=== PATIENT | female | born 1990 | race American Indian/Alaskan Native ===

== ENCOUNTER 2018-04-28 11:36 | Emergency (ER) | payer SELFPAY ==
--- NOTE | 2018-04-28 11:46 | Emergency Department Report ---
Blank Doc - Documentation Documentation: This is a 28-year-old female that presents with boil to right sided buttock ar ea. Denies any pus or drainage. This initial assessment diagnostic orders/clinical plan/treatment(s) is/are subject to change based on patient's health status, clinical progression and re-assessment by fellow clinical providers in the ED. Further treatment and workup at subsequent clinical providers discretion. Patient/guardians urged not to elope from ED s their condition may be serious if not clinically assessed and managed. Initial orders include: 1-Patient sent to [facility] for further evaluation and treatment
[2018-04-28 11:48] VITALS: BP 112/65
--- NOTE | 2018-04-28 12:11 | Emergency Department Report ---
Abscess Boil HPI - HPI Chief Complaint: Skin/Abscess/Foreign Body Stated Complaint: INGROWN HAIR ON INNER THIGH Time Seen by Provider: 04/28/18 11:45 Duration: >1 Week Location: Lower Extremity Severity: Moderate History: Yes Pain, Yes Previous History, No Fever, No Purulent Drainage, No Numbness, No Foreign Body, No Insect Bite HPI: pt reports ingrown hair to thigh x 1 week, enlarging. no drainage. no systemi sx. started after shaving Home Medications: Previous Rx's Medication Instructions Recorded Last Taken Type Ibuprofen [Motrin] 800 mg PO Q8HR PRN #15 tablet 04/28/18 Unknown Rx Sulfamethoxazole/Trimethoprim 1 each PO BID #20 tablet 04/28/18 Unknown Rx [Bactrim DS TAB] Allergies/Adverse Reactions: Allergies Allergy/AdvReac Type Severity Reaction Status Date / Time No Known Allergies Allergy Verified 04/28/18 11:46 ED Review of Systems ROS: Stated complaint: INGROWN HAIR ON INNER THIGH Other details as noted in HPI Comment: All other systems reviewed and negative Skin: as per HPI ED Past Medical Hx - Past Medical History Previous Medical History?: No - Surgical History Past Surgical History?: No - Social History Smoking Status: Never Smoker Substance Use Type: Alcohol, Marijuana - Medications Home Medications: Home Medications Medication Instructions Recorded Confirmed Last Taken Type Ibuprofen [Motrin] 800 mg PO Q8HR PRN #15 tablet 04/28/18 Unknown Rx Sulfamethoxazole/Trimethoprim 1 each PO BID #20 tablet 04/28/18 Unknown Rx [Bactrim DS TAB] ED Abscess Boil Physical Exam - Exam General: Vital signs noted. No distress. Alert and acting appropriately. Size: >5 cm Exam: Yes Tenderness, Yes Fluctuance, Yes Surrounding Cellulites/Erythema, Yes Normal Neurologic Exam, Yes Normal Circulation, No Heart Murmur I & D Note - I & D Note I & D Note: Following usual sterile prep, betadine x 3 applied, 1% lidocaine for field block (3 cc). Small incision with 11 blade followed by copious purulent drainage. Attempted to place packing but patient unable to tolerate. Procedure otherwise well tolerated. ED Course Vital Signs 04/28/18 11:46 Temperature 98.3 F Pulse Rate 111 H Respiratory 16 Rate Blood Pressure 112/65 [Right] O2 Sat by Pulse 97 Oximetry Critical care attestation.: If time is entered above; I have spent that time in minutes in the direct care of this critically ill patient, excluding procedure time. ED Medical Decision Making - Medical Decision Making thigh abscess s/p I&D abx, supportive care fu PCP, RTER if worse - Differential Diagnosis abscess, cellulitis ED Disposition Clinical Impression: Abscess Disposition: - TO HOME OR SELFCARE Is pt being admited?: No Condition: Good Instructions: Abscess (ED) Prescriptions: Ibuprofen [Motrin] 800 mg PO Q8HR PRN #15 tablet PRN Reason: pain Sulfamethoxazole/Trimethoprim [Bactrim DS TAB] 1 each PO BID #20 tablet Referrals: TRENTON HADLEY MD [Primary Care Provider] - 3-5 Days Time of Disposition: 12:37
[2018-04-28] MEDS ORDERED: XYLOCAINE 1% 20 mL ONE (12:14)
[2018-04-28] MEDS ORDERED: XYLOCAINE 1% 20 mL INFILTRATI ONE (12:15)
== END 2018-04-28 12:57 | disposition home or self-care (01) ==
LOC: ED 11:36
DX: L02.419 Cutaneous abscess of limb, unspecified (principal)
CPT/HCPCS: 99282